=== PATIENT | female | born 1965 | race Caucasian/White ===

== ENCOUNTER 2017-02-17 18:36 | Emergency (ER) | payer OTHER ==
[~2017-02-17] VITALS: Ht 165.1 cm; Wt 70.3 kg
[2017-02-17] MEDS ORDERED: LORAZEPAM 0.5 MG TABLET PO ONE (18:45)
--- NOTE | 2017-02-17 18:54 | NUR ---
lab mckenna blood, ativan administered, monitor shows nsr, po2=97% ON ROOMA[place].
[2017-02-17] MEDS ORDERED: LORAZEPAM 1 MG TABLET ONE (19:00)
[2017-02-17 19:02] LABS: BASOPHILS % (AUTO) 0.6 % (0.0-2.0); EOSINOPHILS # (AUTO) 0.1 K/uL (0.0-0.7); EOSINOPHILS % (AUTO) 0.8 % (0.0-7.0); HEMOGLOBIN 14.9 g/dL (10.9-14.3); LYMPHOCYTES # (AUTO) 3.1 K/uL (20.0-40.0); LYMPHOCYTES % (AUTO) 39.4 % (20.5-51.5); MEAN CORPUSCULAR HEMOGLOBIN 29.3 uug (24.7-32.8); MEAN CORPUSCULAR HGB CONC 35 g/dL (32.3-35.6); MEAN CORPUSCULAR VOLUME 84.5 fL (75.5-95.3); MONOCYTES # (AUTO) 0.6 K/uL (2.0-10.0); MONOCYTES % (AUTO) 7.1 % (0.0-11.0); NEUTROPHILS # (AUTO) 4.2 K/uL (1.8-8.9); NEUTROPHILS % (AUTO) 52.1 % (38.5-71.5); PLATELET COUNT (AUTO) 214 K/uL (179-408); RED BLOOD CELL COUNT(AUTO) 5.08 MIL/uL (3.63-4.92); RED CELL DISTRIBUTION WIDTH 12.2 % (12.3-17.7)
--- NOTE | 2017-02-17 19:06 | NUR ---
[facility] REPORT TO ANNAMARIA OCCUPATIONAL HEALTH PHYSICIAN
[2017-02-17 19:12] LABS: CALCIUM 9.2 mg/dL (8.5-10.1); CREATININE 0.9 mg/dL (0.6-1.3); POTASSIUM 3.7 mmol/L (3.5-5.1)
[2017-02-17 19:17] LABS: ALBUMIN 3.9 g/dL (3.4-5.0); BILIRUBIN,DIRECT 0.1 mg/dL (0.0-0.2); BILIRUBIN,TOTAL 0.4 mg/dL (0.2-1.0); TOTAL PROTEIN, SERUM 7.9 g/dL (6.4-8.2)
--- NOTE | 2017-02-17 19:37 | NUR ---
Patient discharged to home in stable conditon. Written and verbal after care instructions given. Patient verbalizes understanding of instructions.
== END 2017-02-17 19:38 | disposition home or self-care (01) ==
LOC: ER 18:36
DX: F41.9 Anxiety disorder, unspecified (principal); K21.9 Gastro-esophageal reflux disease without esophagitis; F17.200 Nicotine dependence, unspecified, uncomplicated
CPT/HCPCS: 36415; 80048; 80076; 83690; 84703; 85025; 93005; 99285; A4663

== ENCOUNTER 2023-09-05 05:13 | Inpatient (IN) | payer BC, OTHER ==
[~2023-09-05] VITALS: Ht 165.1 cm; Wt 70.3 kg
[2023-09-05] MEDS ORDERED: MECLIZINE HCL 25 MG TABLET ONE (05:39)
[2023-09-05] MEDS ORDERED: ONDANSETRON 4 MG/2 ML VIAL ONE ×2 (05:39→17:14)
[2023-09-05] MEDS ORDERED: MECLIZINE HCL 25 MG TABLET PO ONE (05:45)
[2023-09-05] MEDS ORDERED: LORAZEPAM 2 MG/1 ML VIAL IV ONE (05:45)
[2023-09-05] MEDS ORDERED: ONDANSETRON 4 MG/2 ML VIAL IV ONE (05:45)
[2023-09-05] MEDS ORDERED: IV NORMAL SALINE 1000 ML BAG IV ONE (05:45)
[2023-09-05 05:53] LABS: EOSINOPHILS # (AUTO) 0.7 K/uL (0.0-0.7); EOSINOPHILS % (AUTO) 7.8 % (0.0-7.0); HEMATOCRIT 41.2 % (31.2-41.9); HEMOGLOBIN 13.9 g/dL (10.9-14.3); LYMPHOCYTES % (AUTO) 22.8 % (20.5-51.5); MEAN CORPUSCULAR HEMOGLOBIN 29.5 uug (24.7-32.8); MEAN CORPUSCULAR HGB CONC 34 g/dL (32.3-35.6); MEAN CORPUSCULAR VOLUME 87.3 fL (75.5-95.3); MONOCYTES # (AUTO) 1.7 K/uL (0.1-1.30); MONOCYTES % (AUTO) 20.2 % (0.0-11.0); NEUTROPHILS # (AUTO) 4.3 K/uL (1.8-8.9); NEUTROPHILS % (AUTO) 49.2 % (38.5-71.5); PLATELET COUNT (AUTO) 198 K/uL (179-408); RED BLOOD CELL COUNT(AUTO) 4.72 MIL/uL (3.63-4.92); RED CELL DISTRIBUTION WIDTH 12.8 % (12.3-17.7); WHITE BLOOD COUNT (AUTO) 8.6 K/uL (3.8-11.8)
[2023-09-05 05:56] LABS: DIFFERENTIAL COMMENT 1
[2023-09-05 06:05] LABS: CALCIUM 8.9 mg/dL (8.5-10.1); CARBON DIOXIDE 26 mmol/L (21-32); CHLORIDE 106 mmol/L (98-107); CREATININE 0.9 mg/dL (0.6-1.3); GLUCOSE 195 mg/dL (74-106); POTASSIUM 3.6 mmol/L (3.5-5.1); SODIUM SERUM 142 mmol/L (136-145); UREA NITROGEN, BLOOD 13 mg/dL (7-18)
[2023-09-05 06:35] LABS: ALBUMIN 3.7 g/dL (3.4-5.0); BILIRUBIN,DIRECT 0.2 mg/dL (0.0-0.2); BILIRUBIN,TOTAL 0.3 mg/dL (0.2-1.0); TOTAL PROTEIN, SERUM 7.2 g/dL (6.4-8.2)
[2023-09-05] MEDS ORDERED: ONDA4TAB5 PO (06:48)
[2023-09-05] MEDS ORDERED: LORA-259 PO (06:49)
[2023-09-05 09:54] LABS: THYROID STIMULATING HORMONE 0.957 mIU/mL (0.358-3.740)
[2023-09-05] MEDS ORDERED: ATOR20TA PO (10:38)
[2023-09-05] MEDS ORDERED: ENALAPRILAT DIHYDRATE 1.25 MG/1 ML VIAL IV PRN (11:30)
[2023-09-05] MEDS ORDERED: TEMAZEPAM 15 MG CAPSULE PO PRN (11:30)
[2023-09-05] MEDS ORDERED: ACETAMINOPHEN 325 MG TABLET PO PRN (11:30)
[2023-09-05] MEDS ORDERED: ONDANSETRON 4 MG/2 ML VIAL IV PRN (11:30)
[2023-09-05] MEDS ORDERED: ASPIRIN EC 81 MG TABLET.DR PO ONE (12:08)
[2023-09-05] MEDS: ASPIRIN EC 81 MG TABLET.DR PO SCH (12:10)
[2023-09-05] MEDS: POTASSIUM CHLORIDE 20 MEQ in IV 1/2NS 1000 ML 1,000 ML IV PRN (12:30)
[2023-09-05 12:40] LABS: *BILIRUBIN,URIN NEGATIVE (NEGATIVE); *BLOOD, URINE NEGATIVE (NEGATIVE); *CLARITY,URINE CLEAR (CLEAR); *COLOR,URINE YELLOW (YELLOW); *KETONES,URINE NEGATIVE (NEGATIVE); *PROTEIN,URINE NEGATIVE (NEGATIVE); *UROBILINOGEN,URINE 0.2 E.U./dl (NORMAL); LEUKOCYTE ESTERASE ,URINE TRACE (NEGATIVE); NITRITE, URINE NEGATIVE (NEGATIVE); PH,URINE 7.5 (5.0-8.0); UGLUCOSE NEGATIVE (NEGATIVE)
[2023-09-05 13:25] LABS: BACTERIA,URINE MODERATE /HPF (NONE SEEN); RBC,URINE 0-3 /HPF (0-3); SQUAMOUS EPITHELIAL CELL,UR MODERATE /HPF (NONE SEEN)
[2023-09-05 13:40] LABS: LYMPHOCYTES % (MANUAL) 24 % (20-40); MONOCYTES % (MANUAL) 13 % (2-10); NEUTROPHILS % (MANUAL) 50 % (42-75)
[2023-09-05 13:41] LABS: ANISOCYTOSIS 1+; PLATELET ESTIMATE DECREASED
[2023-09-05] MEDS ORDERED: CEFTRIAXONE /D5W 50ML IVPB **ER PYXIS IV ONE (16:42)
[2023-09-05] MEDS ORDERED: CEFTRIAXONE 1 G in IV DEXTROSE 5% 50 ML IV SCH (17:00)
[2023-09-05] MEDS ORDERED: ATORVASTATIN 20 MG TABLET PO SCH (21:00)
[2023-09-05 21:10] VITALS: BP 142/85; TEMP 98.1
[2023-09-06 00:10] VITALS: BP 149/75; TEMP 98
[2023-09-06] MEDS ORDERED: IV 1/2 NS + KCL 20 MEQ BAG 1,000 ML ONE (04:55)
[2023-09-06 05:00] VITALS: BP 132/70; TEMP 98.5; O2SAT 95
[2023-09-06] MEDS: POTASSIUM CHLORIDE 20 MEQ in IV 1/2NS 1000 ML 1,000 ML IV PRN (05:05)
[2023-09-06] MEDS ORDERED: PANTOPRAZOLE SODIUM 40 MG TABLET.DR PO SCH (07:00)
[2023-09-06 07:24] LABS: BASOPHILS % (AUTO) 0.4 % (0.0-2.0); EOSINOPHILS # (AUTO) 0.1 K/uL (0.0-0.7); EOSINOPHILS % (AUTO) 0.8 % (0.0-7.0); HEMATOCRIT 39.4 % (31.2-41.9); HEMOGLOBIN 13.5 g/dL (10.9-14.3); LYMPHOCYTES # (AUTO) 2.9 K/uL (0.8-4.8); LYMPHOCYTES % (AUTO) 39.7 % (20.5-51.5); MEAN CORPUSCULAR HEMOGLOBIN 29.4 uug (24.7-32.8); MEAN CORPUSCULAR HGB CONC 34 g/dL (32.3-35.6); MEAN CORPUSCULAR VOLUME 86.2 fL (75.5-95.3); MONOCYTES # (AUTO) 0.5 K/uL (0.1-1.30); MONOCYTES % (AUTO) 6.6 % (0.0-11.0); NEUTROPHILS # (AUTO) 3.8 K/uL (1.8-8.9); NEUTROPHILS % (AUTO) 52.5 % (38.5-71.5); PLATELET COUNT (AUTO) 217 K/uL (179-408); RED BLOOD CELL COUNT(AUTO) 4.57 MIL/uL (3.63-4.92); RED CELL DISTRIBUTION WIDTH 12.8 % (12.3-17.7); WHITE BLOOD COUNT (AUTO) 7.3 K/uL (3.8-11.8)
[2023-09-06 07:29] LABS: ALBUMIN 3.5 g/dL (3.4-5.0); BILIRUBIN,TOTAL 0.4 mg/dL (0.2-1.0); CALCIUM 8.7 mg/dL (8.5-10.1); CREATININE 0.8 mg/dL (0.6-1.3); MAGNESIUM 2.4 mg/dL (1.8-2.4); PHOSPHOROUS 3.7 mg/dL (2.5-4.9); POTASSIUM 3.9 mmol/L (3.5-5.1)
[2023-09-06 07:32] LABS: DIFFERENTIAL COMMENT 1
[2023-09-06] MEDS: ASPIRIN EC 81 MG TABLET.DR PO SCH (08:41)
[2023-09-06 11:30] VITALS: BP 139/88; TEMP 98.1; O2SAT 98
== END 2023-09-06 14:40 | disposition home or self-care (01) | DRG 149 ==
LOC: ER 05:15 → TRANSITION 11:44 → UNDOADMIN 11:44 → TELE3 20:33 → UNDOADMIN 20:33
PROVIDERS: ADMIT Internal Medicine; ATTEND Internal Medicine
DX: H83.09 Labyrinthitis, unspecified ear (principal); G93.9 Disorder of brain, unspecified; Z53.29 Procedure and treatment not carried out because of patient's decision for other reasons; B97.89 Other viral agents as the cause of diseases classified elsewhere; R11.2 Nausea with vomiting, unspecified; F17.210 Nicotine dependence, cigarettes, uncomplicated; I10 Essential (primary) hypertension; F41.9 Anxiety disorder, unspecified; E78.5 Hyperlipidemia, unspecified; K21.9 Gastro-esophageal reflux disease without esophagitis; R94.31 Abnormal electrocardiogram [ECG] [EKG]; R73.03 Prediabetes; I51.89 Other ill-defined heart diseases; A08.4 Viral intestinal infection, unspecified; R26.2 Difficulty in walking, not elsewhere classified
CPT/HCPCS: 36415; 70030-TC; 70450; 71045; 83735; 84100; 84443; 84484; 85025; 85730; 93005; 93307; 93880; G0378; J0696; J2060; J2405; J3480; J3490; J7040; J8597

== ENCOUNTER 2024-07-17 06:52 | Emergency (ER) | payer BC ==
[~2024-07-17] VITALS: Ht 167.6 cm; Wt 70.8 kg
[~2024-07-17 06:52] MED LIST: ATOR20TA PO; LORA-259 PO; ONDA4TAB5 PO
[2024-07-17] MEDS: IV NORMAL SALINE 1000 ML BAG IV ONE (07:32)
[2024-07-17 07:35] LABS: BASOPHILS % (AUTO) 0.5 % (0.0-2.0); EOSINOPHILS # (AUTO) 0.1 K/uL (0.0-0.7); EOSINOPHILS % (AUTO) 1.6 % (0.0-7.0); HEMATOCRIT 43.1 % (31.2-41.9); HEMOGLOBIN 14.4 g/dL (10.9-14.3); LYMPHOCYTES # (AUTO) 2.1 K/uL (0.8-4.8); LYMPHOCYTES % (AUTO) 38.4 % (20.5-51.5); MEAN CORPUSCULAR HGB CONC 34 g/dL (32.3-35.6); MEAN CORPUSCULAR VOLUME 86.8 fL (75.5-95.3); MONOCYTES # (AUTO) 0.4 K/uL (0.1-1.30); MONOCYTES % (AUTO) 7.3 % (0.0-11.0); NEUTROPHILS # (AUTO) 2.9 K/uL (1.8-8.9); NEUTROPHILS % (AUTO) 52.2 % (38.5-71.5); PLATELET COUNT (AUTO) 177 K/uL (179-408); RED BLOOD CELL COUNT(AUTO) 4.97 MIL/uL (3.63-4.92); RED CELL DISTRIBUTION WIDTH 13.1 % (12.3-17.7); WHITE BLOOD COUNT (AUTO) 5.5 K/uL (3.8-11.8)
[2024-07-17 07:43] LABS: DIFFERENTIAL COMMENT 1
[2024-07-17 07:45] LABS: CALCIUM 8.5 mg/dL (8.5-10.1); CARBON DIOXIDE 32 mmol/L (21-32); CHLORIDE 107 mmol/L (98-107); CREATININE 0.7 mg/dL (0.6-1.3); GLUCOSE 140 mg/dL (74-106); POTASSIUM 3.9 mmol/L (3.5-5.1); SODIUM SERUM 142 mmol/L (136-145); UREA NITROGEN, BLOOD 10 mg/dL (7-18)
[2024-07-17 07:54] LABS: ALANINE AMINOTRANSFERASE 25 U/L (14-59); ALBUMIN 3.6 g/dL (3.4-5.0); ALKALINE PHOSPHATASE 65 U/L (50-136); ASPARTATE AMINOTRANSFERASE 14 U/L (15-37); BILIRUBIN,DIRECT 0.1 mg/dL (0.0-0.2); BILIRUBIN,TOTAL 0.4 mg/dL (0.2-1.0); TOTAL PROTEIN, SERUM 7.3 g/dL (6.4-8.2)
[2024-07-17 08:22] LABS: *BILIRUBIN,URIN NEGATIVE (NEGATIVE); *BLOOD, URINE NEGATIVE (NEGATIVE); *CLARITY,URINE CLEAR (CLEAR); *COLOR,URINE YELLOW (YELLOW); *KETONES,URINE NEGATIVE (NEGATIVE); *PROTEIN,URINE NEGATIVE (NEGATIVE); *UROBILINOGEN,URINE 0.2 E.U./dl (NORMAL); LEUKOCYTE ESTERASE ,URINE TRACE (NEGATIVE); NITRITE, URINE NEGATIVE (NEGATIVE); PH,URINE 6.5 (5.0-8.0); UGLUCOSE NEGATIVE (NEGATIVE)
[2024-07-17] MEDS ORDERED: SWABABLE VALVE TRANSFER SET EA MC ONE (08:31)
[2024-07-17] MEDS ORDERED: IV NORMAL SALINE 250 ML IV ONE (08:31)
[2024-07-17] MEDS ORDERED: IOHEXOL 350 100 ML INFUS..BTL ONE (08:31)
[2024-07-17 08:44] LABS: BACTERIA,URINE FEW /HPF (NONE SEEN); SQUAMOUS EPITHELIAL CELL,UR FEW /HPF (NONE SEEN)
[2024-07-17] MEDS ORDERED: ASPIRIN 81 MG TAB.CHEW ONE (10:34)
[2024-07-17] MEDS: ASPIRIN 81 MG TAB.CHEW PO ONE (10:34)
[2024-07-17 10:42] VITALS: BP 125/82; O2SAT 98
[2024-07-17] MEDS ORDERED: ONDA4TAB11 PO (21:18)
== END 2024-07-17 10:40 | disposition home or self-care (01) ==
LOC: ER 07:00
DX: R42 Dizziness and giddiness (principal); K21.9 Gastro-esophageal reflux disease without esophagitis; F17.200 Nicotine dependence, unspecified, uncomplicated; Z79.899 Other long term (current) drug therapy
CPT/HCPCS: 99285; 70496; 96360; 71045; 96361; 80076; 80048; 81001; 85025; 85730; 84484; 36415; 70498; 71250; 93005; Q9967; J7040; A4606; A4663

== ENCOUNTER 2024-07-17 20:46 | Emergency (ER) | payer BC ==
[~2024-07-17] VITALS: Ht 167.6 cm; Wt 70.8 kg
[2024-07-17] MEDS ORDERED: ONDA4TAB11 PO (21:18)
[2024-07-17] MEDS ORDERED: ACETAMINOPHEN 500 MG TABLET ONE (21:18)
[2024-07-17] MEDS: ACETAMINOPHEN 500 MG TABLET PO ONE (21:20)
[2024-07-17 21:23] VITALS: BP 142/90; O2SAT 98
== END 2024-07-17 21:23 | disposition home or self-care (01) ==
LOC: ER 20:48
DX: R11.2 Nausea with vomiting, unspecified (principal); K21.9 Gastro-esophageal reflux disease without esophagitis; F41.9 Anxiety disorder, unspecified; I10 Essential (primary) hypertension; T46.1X5A Adverse effect of calcium-channel blockers, initial encounter; F17.200 Nicotine dependence, unspecified, uncomplicated; Z79.899 Other long term (current) drug therapy; Y92.89 Other specified places as the place of occurrence of the external cause
CPT/HCPCS: A4606; A4663; A9150